=== PATIENT | female | born 1970 | race Caucasian/White ===

== ENCOUNTER 2019-10-05 08:31 | Day surgery (SDC) | payer OTHER ==
--- NOTE | 2019-10-04 09:27 | HP ---
HISTORY AND PHYSICAL CHIEF COMPLAINT: Left knee pain. HISTORY OF PRESENT ILLNESS: The patient is a 49-year-old female who presents with left knee pain for the past couple months. She tripped and fell on her left knee. She notes pain along with swelling and stiffness. She also notes giving way. PAST MEDICAL HISTORY: Otherwise negative. PAST SURGICAL HISTORY: Negative. CURRENT MEDICATIONS: None. ALLERGIES: She denies drug allergies. FAMILY HISTORY: Family history is noncontributory. SOCIAL HISTORY: Negative for current tobacco or alcohol use. REVIEW OF SYSTEMS: Sixteen point review of systems otherwise reviewed and is noncontributory. PHYSICAL EXAMINATION: On examination, the patient is approximately 5 foot 4, 147 pounds of mesomorphic habitus. HEENT: Exam is nonfocal. NECK: Supple. EXTREMITIES: She has painless passive motion of her left hip. Straight leg raise is negative. Active motion left knee -10 to 130 degrees of flexion. She is tender about the lateral greater than medial joint line. She has a mild effusion. Collaterals are stable. Karley's 1+. Kayleigh's elicits medial pain. Her distal neurovascular exam appears intact in the left lower extremity. X-RAY: X-rays of the left knee obtained in the office show mild medial compartment narrowing. MRI report left knee shows a posterior medial meniscal tear along with a chronic ACL tear. IMPRESSION: 1. Internal derangement left knee with symptomatic medial meniscal tear. 2. 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 RECOMMENDATIONS: I talked to the patient at length regarding her condition and treatment options. At this point, she is having significant pain and mechanical symptoms after this acute injury. After thorough discussion, she opts to proceed with surgery. We will plan to proceed with arthroscopic evaluation with probable partial medial meniscectomy. We will not plan on an anterior cruciate ligament reconstruction at this point. We will likely perform this as an outpatient procedure. MMODL / IJN: [id number] /
[2019-10-04 10:05] VITALS: BMI 25.2
[~2019-10-05 08:31] MED LIST: DEXAMETHASONE SOD PHOSPHATE 10 MG/ML 1 ML VIAL IV ONE; KETOROLAC 30 MG/ML 1 ML VIAL IVP SCH; LACTATED RINGERS 1,000 ML IV SCH; LIDOCAINE 1% (10MG/ML) FOR IV START INTRADERMA PRN; METOCLOPRAMIDE 5 MG/ML 2 ML VIAL IVP PRN; ONDANSETRON 4 MG/2 ML VIAL IVP ONE
[2019-10-05] MEDS ORDERED: ONDANSETRON 4 MG/2 ML VIAL ONE ×2 (09:14→12:22)
[2019-10-05 09:34] LABS: Basophils % (A) 1 %; Eosinophils # (A) 0.2 k/uL (0-0.7); Eosinophils % (A) 3 %; HCT 40.4 % (34.0-46.0); Lymphocytes # (A) 1.3 k/uL (1.0-4.8); Lymphocytes % (A) 24 %; MCH 27.9 pg (25.0-35.0); MCHC 32.1 g/dL (31.0-37.0); MCV 87.1 fL (80.0-100.0); Mean Platelet Volume 8.1; Monocytes # (A) 0.4 k/uL (0-1.0); Monocytes % (A) 7 %; Neutrophils # (A) 3.4 k/uL (1.3-7.7); Neutrophils % (A) 63 %; Platelet Count 198 k/uL (150-450); RBC 4.64 m/uL (3.80-5.40); RDW 13.3 % (11.5-15.5); WBC 5.3 k/uL (3.8-10.6)
[2019-10-05 09:44] LABS: African American GFR (CKD) >90 (>60 ml/min/1.73 sqM); Anion Gap 7 mmol/L; Blood Urea Nitrogen 18 mg/dL (7-17); Calcium 8.8 mg/dL (8.4-10.2); Carbon Dioxide 26 mmol/L (22-30); Chloride 106 mmol/L (98-107); Glucose 85 mg/dL (74-99); Non-African American GFR(CKD) >90 (>60 ml/min/1.73 sqM); Potassium 3.9 mmol/L (3.5-5.1); Sodium 139 mmol/L (137-145)
[2019-10-05] MEDS ORDERED: SUCCINYLCHOLINE CHLORIDE 100 MG/5 ML SYR IV ONE (09:53)
[2019-10-05] MEDS ORDERED: PROPOFOL 10 MG/ML 20 ML VIAL IV ONE (09:53)
[2019-10-05] MEDS ORDERED: fentaNYL (PF) 50 MCG/ML 2 ML AMP ONE (09:53)
[2019-10-05] MEDS ORDERED: MIDAZOLAM 2 MG/2 ML VIAL ONE (09:53)
[2019-10-05] MEDS ORDERED: LIDOCAINE 1% INJ 10MG/ML (20 ML MDV) ONE (09:53)
--- NOTE | 2019-10-05 11:11 | P.OP ---
Date of Procedure: 10/05/19 Preoperative Diagnosis: Left knee internal derangement Postoperative Diagnosis: Left knee posterior medial meniscal tear/chronic ACL rupture/grade 3 chondral injury posterior central medial femoral condyle Procedure(s) Performed: Left knee arthroscopic partial medial meniscectomy/ACL debridement/medial femoral chondrectomy/microfracture medial femoral condyle Anesthesia: RICO Surgeon: Balbir Turpin Estimated Blood Loss (ml): 10 Pathology: none sent Condition: stable Disposition: PACU Indications for Procedure: The patient's a 49-year-old female who presents with progressive left knee pain and mechanical symptoms after a recent injury. A discussion of the risks and benefits of operative intervention versus continued conservative measures was made with patient. She opted to proceed with surgery. Operative risks to include infection, neurovascular injury, development of blood clots, possible incomplete resolution of symptoms, possible worsening symptoms and need for subsequent procedures was discussed. Informed consent was obtained. Operative Findings: As below Description of Procedure: The patient was brought to the operating room, and after induction of general anesthesia examined the left knee. Collaterals were stable, Karley was 2+, and posterior drawer was negative. The left lower extremity was prepped and draped in a normal fashion. A superior lateral portal was made through a 3 mm skin i ncision superior and lateral to the patella. This was used for outflow. A lateral portal was made through a 5 mm vertical skin incision lateral to the patella tendon above the joint line. Diagnostic arthroscopy was performed. On inspection of the medial compartment, a complex tear involving the posterior horn of the medial meniscus was noted in the white-red junction. This was not amenable to repair. This was debrided back to stable base with straight baskets and a motorized shaver. A grade 3 chondral injury was noted involving the central posterior portion medial femoral condyle. There was a loose chondral fragment debrided back to stable base to motorized shaver. Microfracture is performed with a power pick preaching the subchondral surface down to the bone marrow elements. On inspection of the notch, the anterior cruciate ligament appeared to be chronically ruptured. 2 small bone fragments were removed. On inspection of the lateral compartment, no significant cartilage or meniscal pathology was noted. On inspection of the patellofemoral articulation, there was chondral fibrillation however no loose chondral fragments. The gutters were clear debris. The knee was then thoroughly irrigated. The portals were closed with Steri-Strips. A sterile dressing was applied in addition to a compression stocking. The patient was awoken from general anesthesia and tr ansferred to recovery room in good condition. Blood loss was estimated at 10 mL. No complications were incurred.
[2019-10-05 11:19] VITALS: TEMP 97.1
[2019-10-05] MEDS: HYDROmorphone 0.5 MG/0.5 ML SYRINGE IVP PRN ×3 (11:21→11:34)
[2019-10-05] MEDS ORDERED: HYDROcodone/APAP 5-325MG 1 EACH TAB PO ONE (11:58)
[2019-10-05] MEDS ORDERED: HYDROcodone/APAP 5-325MG 1 EACH TAB ONE ×2 (12:18→13:23)
[2019-10-05] MEDS ORDERED: ONDANSETRON 4 MG/2 ML VIAL IVP ONE (12:23)
[2019-10-05 12:29] VITALS: RESP 18
[2019-10-05] MEDS ORDERED: SCOPOLAMINE 1.5MG/72HR PATCH TRANSDERM ONE (13:59)
[2019-10-05] MEDS ORDERED: METOCLOPRAMIDE 5 MG/ML 2 ML VIAL ONE (14:21)
[2019-10-05] MEDS ORDERED: METOCLOPRAMIDE 5 MG/ML 2 ML VIAL IVP ONE (14:24)
[2019-10-05 15:03] VITALS: BP 111/73; PULSE 71
== END 2019-10-05 16:22 | disposition home or self-care (01) ==
LOC: OR 08:31
PROVIDERS: ATTEND Orthopaedic Surgery
DX: S83.242A Other tear of medial meniscus, current injury, left knee, initial encounter (principal); S83.512A Sprain of anterior cruciate ligament of left knee, initial encounter; S83.32XA Tear of articular cartilage of left knee, current, initial encounter; W01.0XXA Fall on same level from slipping, tripping and stumbling without subsequent striking against object, initial encounter; M23.42 Loose body in knee, left knee; F41.9 Anxiety disorder, unspecified; K21.9 Gastro-esophageal reflux disease without esophagitis; Z79.899 Other long term (current) drug therapy
CPT/HCPCS: 29881; 29888; 29879; 81025; 80048; 85025; J2250; J1100; J2765; J0690; J2405; J2001; J3010; J1885; J0330; J2704; J1170; 93005

== ENCOUNTER 2019-11-20 23:02 | Emergency (ER) | payer OTHER ==
[2019-11-20] MEDS ORDERED: LIDOCAINE 1% INJ 10MG/ML (20 ML MDV) SQ ONE (23:27)
[2019-11-20] MEDS ORDERED: CEPHALEXIN 500MG STARTER PACK 4 CAP BTL PO STA (23:27)
[2019-11-20] MEDS ORDERED: SULFAMETH-TMP DS STARTER PACK 2 TAB BTL PO STA (23:27)
--- NOTE | 2019-11-20 23:30 | ED ---
General Adult HPI - General Chief complaint: Skin/Abscess/Foreign Body Stated complaint: Leg Abscess Time Seen by Provider: 11/20/19 23:10 Source: patient, RN notes reviewed Mode of arrival: ambulatory Limitations: no limitations - History of Present Illness Initial comments: 49-year-old female presents to the emergency room for a chief complaint of red ness to the right thigh. Patient states she has had a patch of redness to the right thigh for the past 2 days. States it started as a small bump that progressively got the urine and began to spread redness. Patient states she did poke the area with a needle and got some pus out earlier. She did squeeze the area as well. Patient reports it is not getting better so wanted to be evaluated. Denies fevers.Patient has no other complaints at this time including shortness of breath, chest pain, abdominal pain, nausea or vomiting, headache, or visual changes. - Related Data Home Medications Medication Instructions Recorded Confirmed Multivitamins, Thera [Multivitamin 1 tab PO DAILY 10/04/19 10/05/19 (formulary)] Naproxen [Naprosyn] 500 mg PO Q12HR 10/04/19 10/04/19 Previous Rx's Medication Instructions Recorded Hydrocodone/Acetaminophen [[place] 1 each PO Q6HR PRN #21 tab 10/05/19 5-325] Cephalexin [Keflex] 500 mg PO Q6HR 10 Days #40 cap 11/21/19 Sulfamethox-Tmp 800-160Mg [Bactrim 1 tab PO Q12HR #20 tab 11/21/19 DS 800-160 mg] Allergies Allergy/AdvReac Type Severity Reaction Status Date / Time No Known Allergies Allergy Verified 11/20/19 23:06 Review of Systems ROS Statement: Those systems with pertinent positive or pertinent negative responses have been documented in the HPI. ROS Other: All systems not noted in ROS Statement are negative. Past Medical History Past Medical History: Musculoskeletal Disorder History of Any Multi-Drug Resistant Organisms: None Reported Past Surgical History: Section Past Anesthesia/Blood Transfusion Reactions: No Reported Reaction Past Psychological History: Anxiety Smoking Status: Former smoker General Exam Limitations: no limitations General appearance: alert, in no apparent distress Head exam: Present: atraumatic, normocephalic, normal inspection Eye exam: Present: normal appearance, PERRL, EOMI. Absent: scleral icterus, conjunctival injection, periorbital swelling ENT exam: Present: normal exam, mucous membranes moist Neck exam: Present: normal inspection, full ROM. Absent: tenderness, meningismus, lymphadenopathy Respiratory exam: Present: normal lung sounds bilaterally. Absent: respiratory distress, wheezes, rales, rhonchi, stridor Cardiovascular Exam: Present: regular rate, normal rhythm, normal heart sounds. Absent: systolic murmur, diastolic murmur, rubs, gallop, clicks GI/Abdominal exam: Present: soft, normal bowel sounds. Absent: distended, tenderness, guarding, rebound, rigid Extremities exam: Present: other (patient has a 10 cm x 10 cm of erythemaconsistent with cellulitis noted on the anterior right thigh. There is no streaking redness associated with this. There is a small area of induration in the center of the erythema presumed to be abscess.) Course Vital Signs 11/20/19 23:02 Temperature 98.1 F Pulse Rate 95 Respiratory 20 Rate Blood Pressure 118/75 O2 Sat by Pulse 98 Oximetry Procedures - Incision & Drainage Consent Obtained: verbal consent Indication: abscess Site: lower extremity Size (cm): 2 Anesthetic Used: lidocaine 1% Amount (mLs): 2 I&D Cleaning Method: Chloroprep Sterile Field Used?: Yes Scalpel Used: #11 I&D Drainage Obtained: Blood Patient Tolerated Procedure: well, no complications Medical Decision Making - Medical Decision Making patient is about 10 cm of erythema consistent with cellulitis. In the center of this there is a 1 cm x 1 cm indurated area consistent with abscess. However I did incise and drain this and there is no purulent material expelled. Patient will be started on Keflex and Bactrim. Redness was lined with a marker and she will return if it spreads passes after 24 hours. She will return if she has any other worsening symptoms or fevers. Otherwise she will follow-up with her doct or at her appointment in 3 days. Disposition Clinical Impression: Cellulitis Disposition: HOME SELF-CARE Condition: Good Instructions (If sedation given, give patient instructions): Abscess (ED), Cellulitis (ED) Additional Instructions: please take antibiotics as directed. If redness spreads past the line after 24 hours return to the emergency room. If you have any worsening symptoms or fevers return to the emergency room. Otherwise follow-up with your doctor at your appointment on Tuesday. Prescriptions: Sulfamethox-Tmp 800-160Mg [Bactrim DS 800-160 mg] 1 tab PO Q12HR #20 tab Cephalexin [Keflex] 500 mg PO Q6HR 10 Days #40 cap Is patient prescribed a controlled substance at d/c from ED?: No Referrals: Jigna Mejia MD [Primary Care Provider] - 1-2 days Time of Disposition: 00:29
[2019-11-21 01:03] VITALS: BP 131/63; PULSE 72; RESP 16; TEMP 98.3
== END 2019-11-21 01:00 | disposition home or self-care (01) ==
LOC: EC 23:02
DX: L02.415 Cutaneous abscess of right lower limb (principal); Z87.891 Personal history of nicotine dependence
CPT/HCPCS: 99283; 10060; J2001

== ENCOUNTER 2020-01-06 21:03 | Emergency (ER) | payer OTHER ==
[2020-01-06 21:09] VITALS: BP 117/79; PULSE 83; RESP 20; TEMP 98.9
[2020-01-06] MEDS ORDERED: CEPHALEXIN 500 MG CAP PO STA (22:21)
[2020-01-06] MEDS ORDERED: SULFAMETHOX-TMP 800-160MG 1 EACH TAB PO STA (22:21)
--- NOTE | 2020-01-06 22:26 | ED ---
Skin/Abscess/FB HPI - General Source: patient Mode of arrival: ambulatory Limitations: no limitations <Fern Allison - Last Filed: 01/07/20 02:15> <Felisa Crook - Last Filed: 01/08/20 13:18> - General Chief complaint: Skin/Abscess/Foreign Body Stated complaint: Poss bite on L Leg Time Seen by Provider: 01/06/20 21:32 - History of Present Illness Initial comments: Patient is a 49-year-old female presenting to the emergency Department with complaints of a possible abscess on her left lower leg. Patient states she noticed what looked like a mosquito bite on her left lower leg about 3 or 4 days ago but then yesterday she noticed it was beginning to be more red than usual and increase in size. She states it has been draining clear to yellow fluid over the past 2 days. She denies any fever, chills, nausea or vomiting. She states she had a similar thing on her right upper leg a few months ago and she had to have antibiotics. She states that cleared up just fine. She has been keeping the area clean and applying Benadryl cream for the itchiness. She has no further complaints at this time. Upon arrival to the ER, her vital signs are stable. (Fern Allison) - Related Data Home Medications Medication Instructions Recorded Confirmed Multivitamins, Thera [Multivitamin 1 tab PO DAILY 10/04/19 10/05/19 (formulary)] Naproxen [Naprosyn] 500 mg PO Q12HR 10/04/19 10/04/19 Previous Rx's Medication Instructions Recorded Hydrocodone/Acetaminophen [[place] 1 each PO Q6HR PRN #21 tab 10/05/19 5-325] Cephalexin [Keflex] 500 mg PO Q6HR 10 Days #40 cap 11/21/19 Sulfamethox-Tmp 800-160Mg [Bactrim 1 tab PO Q12HR #20 tab 11/21/19 DS 800-160 mg] Cephalexin [Keflex] 500 mg PO Q6HR 10 Days #40 cap 01/06/20 Sulfamethox-Tmp 800-160Mg [Bactrim 1 each PO Q12HR 10 Days #20 tab 01/06/20 Ds] Allergies Allergy/AdvReac Type Severity Reaction Status Date / Time No Known Allergies Allergy Verified 01/06/20 21:09 Review of Systems ROS Other: All systems not noted in ROS Statement are negative. <Fern Allison - Last Filed: 01/07/20 02:15> ROS Other: All systems not noted in ROS Statement are negative. <Felisa Crook - Last Filed: 01/08/20 13:18> ROS Statement: Those systems with pertinent positive or pertinent negative responses have been documented in the HPI. Past Medical History Past Medical History: Musculoskeletal Disorder History of Any Multi-Drug Resistant Organisms: None Reported Past Surgical History: Section Past Anesthesia/Blood Transfusion Reactions: No Reported Reaction Past Psychological History: Anxiety Smoking Status: Former smoker Past Alcohol Use History: None Reported Past Drug Use History: None Reported <Fern Allison - Last Filed: 01/07/20 02:15> General Exam Limitations: no limitations <Fern Allison - Last Filed: 01/07/20 02:15> - General Exam Comments Initial Comments: GENERAL: Patient is well-developed and well-nourished. Patient is nontoxic and in no acute distress. HEAD: Atraumatic, normocephalic. EYES: Pupils equal round and reactive to light, extraocular movements intact, sclera anicteric, conjunctiva are normal. Eyelids were unremarkable. ENT: TMs normal, nares patent, oropharynx clear without exudates. Moist mucous membranes. NECK: Normal range of motion, supple without lymphadenopathy or JVD. LUNGS: Unlabored respirations. Breath sounds clear to auscultation bilaterally and equal. No wheezes rales or rhonchi. HEART: Regular rate and rhythm without murmurs, rubs or gallops. ABDOMEN: Soft, nontender, normoactive bowel sounds. No guarding, no rebound. No masses appreciated. : Deferred MUSCULOSKELETAL: Normal extremities with adequate strength and normal range of motion, no pitting or edema. No clubbing or cyanosis. NEUROLOGICAL: Patient is alert and oriented x 3. Motor and sensory are also intact. Symmetrical smile. Normal speech, normal gait. PSYCH: Normal mood, normal affect. SKIN: Warm, Dry, normal turgor. Patient has a very small 0.5 cm sore to her left lower leg anterior aspect that has some surrounding erythema, consistent with cellulitis. This area is draining a clear to yellowish fluid. There is no induration or fluctuance to it. (Fern Allison) Course Vital Signs 01/06/20 21:06 Temperature 98.9 F Pulse Rate 83 Respiratory 20 Rate Blood Pressure 117/79 O2 Sat by Pulse 100 Oximetry Medical Decision Making <Fern Allison - Last Filed: 01/07/20 02:15> <Felisa Crook - Last Filed: 01/08/20 13:18> - Medical Decision Making Patient is a 49-year-old female here for cellulitis of the left lower leg that began 2-3 days ago. Her vital signs are stable she is afebrile. I will start patient on Bactrim and Keflex for cellulitis, first dose given in the ER. I will send the rest her pharmacy. She is stable for discharge. Strict return parameters were discussed with the patient she verbalized understanding. Case discussed with Dr. Crook. (Fern Allison) I was available for consultation in the emergency department. The history and physical exam were done by the midlevel provider. I was consulted for this patients care. I reviewed the case with the midlevel provider and based on their presentation of the patient, I agree with the assessment, medical decision making and plan of care as documented. Chart was dictated using [employer] dictation software. Attempts were made to correct any dictation errors however some typographical errors may persist. Patient was seen during a national state of emergency due to the Covid-19 pandemic. (Felisa Crook) Disposition Is patient prescribed a controlled substance at d/c from ED?: No <Fern Allison - Last Filed: 01/07/20 02:15> <Felisa Crook - Last Filed: 01/08/20 13:18> Clinical Impression: Cellulitis of left lower leg Disposition: HOME SELF-CARE Condition: Stable Instructions (If sedation given, give patient instructions): Cellulitis (ED) Additional Instructions: Please return to the Emergency Department if symptoms worsen or any other concerns. Take both antibiotics as prescribed, finish entire course. Apply warm compresses to the area to continue with drainage. Follow up with PCP. Prescriptions: Sulfamethox-Tmp 800-160Mg [Bactrim Ds] 1 each PO Q12HR 10 Days #20 tab Cephalexin [Keflex] 500 mg PO Q6HR 10 Days #40 cap Referrals: Jigna Mejia MD [Primary Care Provider] - 1-2 days
== END 2020-01-06 22:35 | disposition home or self-care (01) ==
LOC: EC 21:03
DX: L03.116 Cellulitis of left lower limb (principal); Z79.1 Long term (current) use of non-steroidal anti-inflammatories (NSAID); Z87.891 Personal history of nicotine dependence
CPT/HCPCS: 99283

== ENCOUNTER 2020-01-10 16:55 | Inpatient (IN) | payer OTHER ==
[2020-01-10] MEDS ORDERED: VANCOMYCIN IV PER PHARMACY 1 EACH MISC MISCELLANE PRN (17:16)
[2020-01-10] MEDS ORDERED: PIPERACILLIN-TAZOBACTAM 3.375 GM in SODIUM CHLORIDE 0.9% 100 ML IVPB STA (17:16)
[2020-01-10] MEDS ORDERED: SODIUM CHLORIDE 0.9% 500 ML 500 ML IV ONE (17:17)
[2020-01-10] MEDS ORDERED: VANCOMYCIN 1,500 MG in SODIUM CHLORIDE 0.9% 250 ML IVPB ONE (18:00)
--- NOTE | 2020-01-10 18:03 | ED ---
Skin/Abscess/FB HPI - General Source: patient Mode of arrival: ambulatory Limitations: no limitations <Asuncion Bahena - Last Filed: 01/10/20 20:30> <Felisa Crook - Last Filed: 01/16/20 00:36> - General Chief complaint: Skin/Abscess/Foreign Body Stated complaint: Spider bite, Swollen foot Time Seen by Provider: 01/10/20 17:03 - History of Present Illness Initial comments: 49-year-old female presented for worsening infection of the left lower leg. Patient states approximately one week ago she was bit by something when she was in her yard. Patient states it first that the mosquito bite she states has been worsening in redness/swelling. She states the area has been draining. Patient states that on 01.05 she was placed on keflex and bactrim and has been taking them as directed. Patient denies fevers, chills. Admits to increased pain, swelling of the foot. Patient concerned the infection worsening and presented to the ER. Upon arrival patient appears well nontoxic in no acute distress. Afebrile. No known vascular disease, MRSA hx or DM. (Asuncion Bahena) - Related Data Home Medications Medication Instructions Recorded Confirmed Multivitamins, Thera [Multivitamin 1 tab PO DAILY 10/04/19 01/10/20 (formulary)] Previous Rx's Medication Instructions Recorded HYDROcodone/APAP 5-325MG [[place] 1 each PO Q12HR PRN 2 Days #4 tab 01/15/20 5-325] Sulfamethox-Tmp 800-160Mg [Bactrim 1 tab PO Q12HR 7 Days #14 tab 01/15/20 DS 800-160 mg] Allergies Allergy/AdvReac Type Severity Reaction Status Date / Time No Known Allergies Allergy Verified 01/10/20 18:32 Review of Systems ROS Other: All systems not noted in ROS Statement are negative. <Asuncion Bahena - Last Filed: 01/10/20 20:30> ROS Other: All systems not noted in ROS Statement are negative. <Felisa Crook - Last Filed: 01/16/20 00:36> ROS Statement: Those systems with pertinent positive or pertinent negative responses have been documented in the HPI. Past Medical History Past Medical History: Musculoskeletal Disorder History of Any Multi-Drug Resistant Organisms: None Reported Past Surgical History: Section Past Anesthesia/Blood Transfusion Reactions: No Reported Reaction Past Psychological History: Anxiety Smoking Status: Former smoker Past Alcohol Use History: None Reported Past Drug Use History: None Reported <Asuncion Bahena - Last Filed: 01/10/20 20:30> General Exam Limitations: no limitations <Asuncion Bahena - Last Filed: 01/10/20 20:30> - General Exam Comments Initial Comments: General: The patient is awake and alert, in no distress Eye: Pupils are equal, round and reactive to light, extra-ocular movements are intact. No nystagmus. There is normal conjunctiva bilaterally. No signs of icterus. D. Cardiovascular: There is a regular rate and rhythm. No murmur, rub or gallop is appreciated. Respiratory: Lungs are clear to auscultation, respirations are non-labored, breath sounds are equal. No wheezes, stridor, rales, or rhonchi. Musculoskeletal: Normal ROM, no tenderness. Strength 5/5. Sensation intact. Pulses equal bilaterally 2+. Neurological: A&O x 3. CN II-XII intact grossly, There are no obvious motor or sensory deficits. Coordination appears grossly intact. Speech is normal. Skin: Skin is warm and dry and no rashes. well demarcated red area of the left lower leg, extending distall toward inward aspect of left foot arm, there is a center area lower anterior left leg that has area of spontaneous drainage, eschar present. warm ti tiycg Psychiatric: Cooperative, appropriate mood & affect, normal judgment. (Asuncion Bahena) Course Vital Signs 01/10/20 01/10/20 01/10/20 16:57 18:40 20:57 Temperature 98.2 F 98.0 F Pulse Rate 86 87 84 Respiratory 18 18 18 Rate Blood Pressure 136/83 113/76 115/76 O2 Sat by Pulse 98 98 99 Oximetry Medical Decision Making - Lab Data Result diagrams: 01/10/20 17:50 01/10/20 17:50 <Asuncion Bahena - Last Filed: 01/10/20 20:30> - Lab Data Result diagrams: 01/14/20 11:26 01/15/20 06:33 <Felisa Crook - Last Filed: 01/16/20 00:36> - Medical Decision Making Labs stable. on outpatinet abx x 4 days, worsening symptoms. Patient appears nontoxic but failed outpatient treatment with significant disease clincally on physical exam. patient will be admitted for IV abx and monitoring. I&D performed bedside, time out performed, skin marked, verbal and written consent obtained prior to procedure. Dr Crook is agreeable to admission and personally evaluated patient. I&D time out at 8;26 (Asuncion Bahena) I was available for consultation in the emergency department. The history and physical exam were done by the midlevel provider. I was consulted for this patients care. I reviewed the case with the midlevel provider and based on their presentation of the patient, I agree with the assessment, medical decision making and plan of care as documented. Patient evaluated by myself. Agreed to hospital admission with worsening wound on antibiotics. Chart was dictated using [employer] dictation software. Attempts were made to correct any dictation errors however some typographical errors may persist. Patient was seen during a national state of emergency due to the Covid-19 pandemic. (Felisa Crook) - Lab Data Lab Results 01/10/20 01/10/20 01/10/20 Range/Units 17:50 17:50 17:50 WBC 6.9 (3.8-10.6) k/uL RBC 4.22 (3.80-5.40) m/uL Hgb 12.5 (11.4-16.0) gm/dL Hct 37.9 (34.0-46.0) % MCV 89.7 (80.0-100.0) fL MCH 29.7 (25.0-35.0) pg MCHC 33.1 (31.0-37.0) g/dL RDW 12.6 (11.5-15.5) % Plt Count 243 (150-450) k/uL Neutrophils % 64 % Lymphocytes % 25 % Monocytes % 7 % Eosinophils % 2 % Basophils % 1 % Neutrophils # 4.4 (1.3-7.7) k/uL Lymphocytes # 1.7 (1.0-4.8) k/uL Monocytes # 0.5 (0-1.0) k/uL Eosinophils # 0.1 (0-0.7) k/uL Basophils # 0.1 (0-0.2) k/uL Sodium 137 (137-145) mmol/L Potassium 3.8 (3.5-5.1) mmol/L Chloride 102 (98-107) mmol/L Carbon Dioxide 28 (22-30) mmol/L Anion Gap 7 mmol/L BUN 21 H (7-17) mg/dL Creatinine 0.62 (0.52-1.04) mg/dL Est GFR (CKD-EPI)AfAm >90 (>60 ml/min/1.73 sqM) Est GFR (CKD-EPI)NonAf >90 (>60 ml/min/1.73 sqM) Glucose 86 (74-99) mg/dL Plasma Lactic Acid Jeffrey 0.9 (0.7-2.0) mmol/L Calcium 9.1 (8.4-10.2) mg/dL Total Bilirubin 0.3 (0.2-1.3) mg/dL AST 50 H (14-36) U/L ALT 59 H (4-34) U/L Alkaline Phosphatase 126 (38-126) U/L Total Protein 6.8 (6.3-8.2) g/dL Albumin 3.8 (3.5-5.0) g/dL Disposition Is patient prescribed a controlled substance at d/c from ED?: No Time of Disposition: 19:02 Decision to Admit Reason: Admit from EC Decision Date: 01/10/20 Decision Time: 19:02 <Asuncion Bahena - Last Filed: 01/10/20 20:30> <Felisa Crook - Last Filed: 01/16/20 00:36> Clinical Impression: Left leg cellulitis, Leg abscess, Failure of outpatient treatment Disposition: ADMITTED IP TO THIS HOSP Condition: Stable
--- NOTE | 2020-01-10 18:08 | XR ---
PROCEDURE: XR tibia fibula LT - 2V DATE AND TIME: 01/10/2020 5:44 PM CLINICAL INDICATION: PHH; r/o gas TECHNIQUE: AP and lateral views COMPARISON: None FINDINGS: There is no fracture or malalignment. Evaluation of the soft tissues shows a 2 cm zone of nonspecific soft tissue swelling located anterior ly over the tibia approximately 7.5 cm cephalad to the tibiotalar articulation. There is no soft tiss ue emphysema. No radiopaque foreign body. Remainder of the soft tissues are unremarkable. IMPRESSION: Nonspecific 2 cm zone of soft tissue swelling.
[2020-01-10 18:35] LABS: Basophils # (A) 0.1 k/uL (0-0.2); Basophils % (A) 1 %; Eosinophils # (A) 0.1 k/uL (0-0.7); Eosinophils % (A) 2 %; HCT 37.9 % (34.0-46.0); HGB 12.5 gm/dL (11.4-16.0); Lymphocytes # (A) 1.7 k/uL (1.0-4.8); Lymphocytes % (A) 25 %; MCH 29.7 pg (25.0-35.0); MCHC 33.1 g/dL (31.0-37.0); MCV 89.7 fL (80.0-100.0); Mean Platelet Volume 8.4; Monocytes # (A) 0.5 k/uL (0-1.0); Monocytes % (A) 7 %; Neutrophils # (A) 4.4 k/uL (1.3-7.7); Neutrophils % (A) 64 %; Platelet Count 243 k/uL (150-450); RBC 4.22 m/uL (3.80-5.40); RDW 12.6 % (11.5-15.5); WBC 6.9 k/uL (3.8-10.6)
[2020-01-10] MEDS: SODIUM CHLORIDE 0.9% 1,000 ML IV SCH (18:40)
[2020-01-10 18:48] LABS: ALT 59 U/L (4-34); AST 50 U/L (14-36); African American GFR (CKD) >90 (>60 ml/min/1.73 sqM); Albumin 3.8 g/dL (3.5-5.0); Alkaline Phosphatase 126 U/L (38-126); Anion Gap 7 mmol/L; Blood Urea Nitrogen 21 mg/dL (7-17); Calcium 9.1 mg/dL (8.4-10.2); Carbon Dioxide 28 mmol/L (22-30); Chloride 102 mmol/L (98-107); Glucose 86 mg/dL (74-99); Non-African American GFR(CKD) >90 (>60 ml/min/1.73 sqM); Potassium 3.8 mmol/L (3.5-5.1); Sodium 137 mmol/L (137-145); Total Bilirubin 0.3 mg/dL (0.2-1.3); Total Protein 6.8 g/dL (6.3-8.2)
[2020-01-10] MEDS ORDERED: NALOXONE 0.4 MG/ML 1 ML VIAL IV PRN (19:01)
[2020-01-10] MEDS ORDERED: LIDOCAINE 1% INJ 10MG/ML (20 ML MDV) SQ ONE (19:26)
[2020-01-10] MEDS: MORPHINE SULFATE 4 MG/ML SYRINGE IVP SCH (22:16)
[2020-01-10] MEDS ORDERED: traMADol 50 MG TAB PO PRN (23:13)
[2020-01-10] MEDS: KETOROLAC 15 MG/ML 1 ML VIAL IVP PRN (23:36)
[2020-01-10] MEDS: PANTOPRAZOLE 40 MG TABLET PO SCH (23:37)
[2020-01-11] MEDS: MORPHINE SULFATE 4 MG/ML SYRINGE IVP SCH ×2 (02:45→05:48)
[2020-01-11] MEDS ORDERED: VANCOMYCIN 1,250 MG in SODIUM CHLORIDE 0.9% 250 ML IVPB SCH (05:00)
[2020-01-11] MEDS: SODIUM CHLORIDE 0.9% 1,000 ML IV SCH ×4 (05:26→18:05)
[2020-01-11] MEDS: VANCOMYCIN 1,250 MG in SODIUM CHLORIDE 0.9% 250 ML IVPB SCH ×3 (05:26→20:16)
[2020-01-11] MEDS ORDERED: MORPHINE SULFATE 4 MG/ML SYRINGE IVP PRN (05:49)
[2020-01-11] MEDS: MULTIVITAMINS, THERA 1 EACH TAB PO SCH (08:18)
[2020-01-11] MEDS: KETOROLAC 15 MG/ML 1 ML VIAL IVP PRN (08:18)
[2020-01-11] MEDS: PANTOPRAZOLE 40 MG TABLET PO SCH (09:45)
--- NOTE | 2020-01-11 12:12 | XR ---
EXAMINATION TYPE: XR tibia fibula LT, 2 views DATE OF EXAM: 01/11/2020 Comparison: 01/10/2020 Clinical History: 49-year-old female nonhealing wound lower left leg Findings: There is some improvement in focal anterior soft tissue swelling along the lower leg. No periostitis or osteolysis. No retained radiopaque foreign body identified. No acute fracture. Impression: Some improvement in the focal soft tissue swelling along the anterior aspect of the distal leg. No ac [place] osseous abnormality seen.
[2020-01-11] MEDS ORDERED: NAPROXEN 250 MG TAB PO PRN (14:33)
[2020-01-11] MEDS ORDERED: ALPRAZolam 0.25 MG TAB PO PRN (14:34)
[2020-01-11] MEDS ORDERED: TEMAZEPAM 15 MG CAP PO PRN (14:34)
--- NOTE | 2020-01-11 15:27 | HP ---
HISTORY AND PHYSICAL DATE OF SERVICE: 01/11/2020 CHIEF COMPLAINT: Leg swelling and infection with failure of outpatient treatment. HISTORY OF PRESENT ILLNESS: This 49-year-old woman with a past medical history of multiple medical issues with history of DJD, history of anxiety, history of nicotine dependence, being followed by Dr. Jocelyne Mejia in the outpatient setting, was noted to have pain and swelling of the left leg after working in the yard about a week ago. The patient has taken some antibiotics Keflex and Bactrim in the outpatient. Because of lack of improvement, patient came to [facility] and was admitted for further evaluation and treatment. There is significant swelling in the foot and white count is normal. There is no history of fever, rigors. No history of headache, loss of consciousness, seizures. PAST MEDICAL HISTORY: History of DJD, history of anxiety. MEDICATIONS ARE: Bactrim, Naprosyn, multivitamins, and Keflex. ALLERGIES: None. FAMILY HISTORY: History of brain aneurysm in the family. SOCIAL HISTORY: No history of smoking. No history of alcohol. REVIEW OF SYSTEMS: ENT: No diminished vision. Diminished hearing. CARDIOVASCULAR: No angina. RESPIRATION: No cough, hemoptysis. GI: No nausea. : No edema. NERVOUS SYSTEM: No numbness or weakness. ALLERGY/IMMUNOLOGY: No asthma or hayfever. MUSCULOSKELETAL: As mentioned earlier. HEMATOLOGY: No history of anemia. ENDOCRINE: No history of diabetes or hypothyroidism. CONSTITUTIONAL: As mentioned earlier. DERMATOLOGY: Negative. RHEUMATOLOGY: Negative. PSYCHIATRY: As mentioned earlier. PHYSICAL EXAM: Patient is alert and oriented x3. Pulse 76, blood pressure 105/60, respirations 16, temperature 98 degrees, pulse ox 98% on room air. HEENT: Conjunctivae normal. NECK: No jugular venous distension. CARDIOVASCULAR SYSTEM: S1, S2, muffled. RESPIRATION: Breath sounds diminished at the bases, no rhonchi, no crackles. ABDOMEN: Soft, nontender. LEGS: Significant pain, swelling and erythema and some discharge on the left mentioned area present. NERVOUS SYSTEM: Higher functions as mentioned. Moves all 4 limbs. No focal motor deficit. LYMPHATICS: No lymph node enlargement. SKIN: As mentioned earlier. JOINTS: No active deforming arthropathy. LABS: CBC within normal. Sodium 137, potassium 3.8. AST is 50, ALT is 59. ASSESSMENT: 1. Acute left gomes ulcer with surrounding cellulitis with failure of outpatient treatment, severe. 2. Increased AST, ALT of undetermined etiology. 3. History of DJD. 4. history of anxiety. 5. History of nicotine dependence. 6. FULL CODE. RECOMMENDATION: In this 49-year-old woman who presented with multiple complex medical issues, will monitor the patient closely. Continue with the current management and symptomatic treatment. Patient is on broad-spectrum IV antibiotic. Recommend Vascular Surgery consultation. Guarded prognosis. Will initiate Kefzol and the patient is started on vancomycin. Infectious Disease consultation has been sought. Prognosis guarded. Further recommendations to follow. A copy of this forwarded to Dr. Jocelyne Mejia who is the primary physician. MMODL / IJN: [id number] /
[2020-01-11] MEDS: HEPARIN SODIUM,PORCINE 5,000 UNIT/ML 1 ML VIAL SQ SCH ×2 (15:34→20:17)
[2020-01-11] MEDS: HYDROcodone/APAP 5-325MG 1 EACH TAB PO PRN ×2 (15:35→20:35)
[2020-01-12] MEDS: HYDROcodone/APAP 5-325MG 1 EACH TAB PO PRN ×3 (02:21→20:37)
[2020-01-12] MEDS ORDERED: VANCOMYCIN TROUGH DUE 1 EACH MISC MISCELLANE ONE (03:00)
[2020-01-12 03:34] LABS: Basophils # (A) 0.1 k/uL (0-0.2); Basophils % (A) 1 %; Eosinophils # (A) 0.2 k/uL (0-0.7); Eosinophils % (A) 4 %; HCT 34.6 % (34.0-46.0); HGB 11.1 gm/dL (11.4-16.0); Lymphocytes # (A) 2.1 k/uL (1.0-4.8); Lymphocytes % (A) 44 %; MCH 29.4 pg (25.0-35.0); MCV 91.6 fL (80.0-100.0); Mean Platelet Volume 8.1; Monocytes # (A) 0.3 k/uL (0-1.0); Monocytes % (A) 7 %; Neutrophils % (A) 43 %; Platelet Count 226 k/uL (150-450); RBC 3.78 m/uL (3.80-5.40); RDW 12.8 % (11.5-15.5); WBC 4.7 k/uL (3.8-10.6)
[2020-01-12 03:45] LABS: African American GFR (CKD) >90 (>60 ml/min/1.73 sqM); Anion Gap 5 mmol/L; Blood Urea Nitrogen 14 mg/dL (7-17); Calcium 8.4 mg/dL (8.4-10.2); Carbon Dioxide 28 mmol/L (22-30); Chloride 104 mmol/L (98-107); Glucose 82 mg/dL (74-99); Non-African American GFR(CKD) >90 (>60 ml/min/1.73 sqM); Potassium 4.2 mmol/L (3.5-5.1); Sodium 137 mmol/L (137-145)
[2020-01-12] MEDS: VANCOMYCIN 1,250 MG in SODIUM CHLORIDE 0.9% 250 ML IVPB SCH (04:52)
[2020-01-12] MEDS: HEPARIN SODIUM,PORCINE 5,000 UNIT/ML 1 ML VIAL SQ SCH ×2 (07:49→20:37)
[2020-01-12] MEDS: KETOROLAC 15 MG/ML 1 ML VIAL IVP PRN (07:49)
[2020-01-12] MEDS: PANTOPRAZOLE 40 MG TABLET PO SCH ×2 (07:50→20:36)
[2020-01-12] MEDS: MULTIVITAMINS, THERA 1 EACH TAB PO SCH (07:50)
[2020-01-12] MEDS: SODIUM CHLORIDE 0.9% 1,000 ML IV SCH ×2 (07:51→14:49)
[2020-01-12] MEDS ORDERED: bisacodyL 5 MG TABLET.DR PO PRN (11:49)
[2020-01-12] MEDS ORDERED: LIDOCAINE 1% INJ 10MG/ML (20 ML MDV) SQ ONE (11:58)
[2020-01-12] MEDS: VANCOMYCIN 1,500 MG in SODIUM CHLORIDE 0.9% 250 ML IVPB SCH ×2 (12:03→20:37)
[2020-01-12] MEDS: COLLAGENASE 250 UNIT/GM OINTMENT 30 GM TUBE TOPICAL SCH (13:21)
--- NOTE | 2020-01-12 13:45 | CONS ---
CONSULTATION This is a 49-year-old female. She has been admitted with infected wound left lower extremity anterior aspect of the gomes. According to the patient last week she was working in the garden. According to her, she had some insect bite and she came to the emergency room. At that time, there was some redness and swelling. Patient was put on Keflex and patient came home. She has been readmitted with open chronic wound with draining pus from the anterior aspect of the wound. Wound measurement is 2 x 1 cm with some devitalized tissue and some drainage. There is also swelling of the foot. No history of trauma. PAST MEDICAL HISTORY: Patient had history of anxiety. No history of diabetes, hypertension or coronary artery disease. ALLERGIES: No known allergies. Her white cell count is 6.9. X-ray of the extremity shows no evidence of osteomyelitis. PHYSICAL EXAMINATION: NECK: Supple. Trachea central. CHEST: Clear to auscultation. ABDOMEN: Soft. Femorals are palpable. The patient has a wound on the anterior aspect of the lower leg with infected area with drainage of pus and some devitalized tissue. The patient is admitted to the hospital. PLAN: Debridement of the wound and deep culture. MMODL / IJN: [id number] /
--- NOTE | 2020-01-12 13:45 | PCN ---
PROCEDURE NOTE PREOPERATIVE DIAGNOSIS: Infected wound, left foot, anterior aspect of the gomes measurement is 2 x 1 cm. POSTOPERATIVE DIAGNOSIS: Infected wound, left foot, anterior aspect of the gomes measurement is 2 x 2 x 1 cm. PROCEDURE PERFORMED: Debridement of the wound down to subcutaneous tissue and excision of the devitalized tissue and deep culture. PROCEDURE DETAILS: This patient had history of swelling and wound for the past 1 week. Patient came with marked swelling, redness and drainage of the wound. The left lower leg was prepped and drapes applied in a sterile manner. 1% lidocaine was infiltrated. Then using patient knife, we did the elliptical incision. All the devitalized tissue was excised down to subcutaneous tissue and fat. Deep culture was taken which was sent for culture and sensitivity. No active bleeding was noted. Wound was irrigated with saline. PLAN: We will use Santyl cream for the wound. We will change the dressing daily with Santyl cream and follow with you. MMLANDYL / ZABRINAN: [id number] /
--- NOTE | 2020-01-12 16:15 | PN ---
PROGRESS NOTE DATE OF SERVICE: 01/12/2020 This 49-year-old woman who was admitted with significant left swelling and left ulceration, being closely monitored at this time. The culture showed presumptive MRSA. The patient is on IV vancomycin. Dr. Stone saw the patient and performed a bedside debridement and excision of the devitalized tissue for deep culture. Patient being closely monitored. No chest pain. No palpitations. No fever. Past medical history reviewed. REVIEW OF SYSTEMS: CARDIOVASCULAR SYSTEM: No angina or palpitations. RESPIRATORY SYSTEM: As mentioned earlier. GI: No nausea. No vomiting. no dysuria. NERVOUS SYSTEM: No numbness or weakness. CURRENT MEDICATIONS: Reviewed and include: Thayne 5 mg, Xanax, Dulcolax, cefazolin, Santyl, heparin, Toradol, morphine sulfate, Narcan, Naprosyn, Protonix, Restoril, Ultram and vancomycin. PHYSICAL EXAM: Patient is alert, oriented times three. Pulse is 69. Blood pressure 119/72, respiration 14, temperature 97.8, pulse ox 98% on room air. HEENT: Conjunctivae normal. NECK is no JVD. CARDIOVASCULAR: S1, S2 muffled. RESPIRATIONS: Breath sounds diminished in the bases. No rhonchi. No crackles. ABDOMEN: Soft, nontender. LEGS: Examination of the left leg significant ulceration in the lower 3rd present. NERVOUS SYSTEM: No focal deficits. LABORATORY DATA: CBC within normal limits. Sodium 137, potassium 4.8. AST is 50 and ALT is 59. ASSESSMENT: 1. Acute left goems ulcer with surrounding cellulitis with failure of outpatient treatment, severe with MRSA. 2. Increased AST, ALT of undetermined etiology, mild hepatitis. 3. History of degenerative joint disease. 4. History of anxiety. 5. History of nicotine dependence. 6. FULL CODE. RECOMMENDATIONS AND DISCUSSION: I recommend to continue current medications. Continue symptomatic treatment. Bedside debridement by Dr. Stone. Continue the IV vancomycin. Otherwise, I would also recommend a bone scan to rule out the possibility of osteomyelitis. Otherwise, prognosis guarded because of multiple complex medical issues and further recommendations to follow. MMODL / IJN: [id number] /
[2020-01-12] MEDS ORDERED: ONDANSETRON 4 MG/2 ML VIAL IVP PRN (16:47)
[2020-01-13] MEDS: SODIUM CHLORIDE 0.9% 1,000 ML IV SCH ×3 (00:26→14:13)
[2020-01-13] MEDS: VANCOMYCIN 1,500 MG in SODIUM CHLORIDE 0.9% 250 ML IVPB SCH ×3 (03:55→19:56)
[2020-01-13] MEDS: HYDROcodone/APAP 5-325MG 1 EACH TAB PO PRN ×3 (04:11→17:22)
[2020-01-13 07:32] LABS: Basophils # (A) 0.1 k/uL (0-0.2); Basophils % (A) 1 %; Eosinophils # (A) 0.1 k/uL (0-0.7); Eosinophils % (A) 3 %; HCT 34.2 % (34.0-46.0); HGB 11.1 gm/dL (11.4-16.0); Lymphocytes # (A) 1.8 k/uL (1.0-4.8); Lymphocytes % (A) 33 %; MCH 29.7 pg (25.0-35.0); MCHC 32.6 g/dL (31.0-37.0); MCV 91.2 fL (80.0-100.0); Mean Platelet Volume 7.9; Monocytes # (A) 0.3 k/uL (0-1.0); Monocytes % (A) 6 %; Neutrophils % (A) 55 %; Platelet Count 243 k/uL (150-450); RBC 3.75 m/uL (3.80-5.40); RDW 12.5 % (11.5-15.5); WBC 5.4 k/uL (3.8-10.6)
[2020-01-13] MEDS: COLLAGENASE 250 UNIT/GM OINTMENT 30 GM TUBE TOPICAL SCH (07:41)
[2020-01-13] MEDS: PANTOPRAZOLE 40 MG TABLET PO SCH ×2 (07:41→15:56)
[2020-01-13] MEDS: HEPARIN SODIUM,PORCINE 5,000 UNIT/ML 1 ML VIAL SQ SCH ×2 (07:41→19:58)
[2020-01-13] MEDS: MULTIVITAMINS, THERA 1 EACH TAB PO SCH (07:41)
[2020-01-13 07:50] LABS: African American GFR (CKD) >90 (>60 ml/min/1.73 sqM); Anion Gap 3 mmol/L; Blood Urea Nitrogen 11 mg/dL (7-17); Calcium 8.4 mg/dL (8.4-10.2); Carbon Dioxide 28 mmol/L (22-30); Chloride 106 mmol/L (98-107); Glucose 84 mg/dL (74-99); Non-African American GFR(CKD) >90 (>60 ml/min/1.73 sqM); Sodium 137 mmol/L (137-145)
[2020-01-13 14:47] LABS: ALT 153 U/L (4-34); AST 113 U/L (14-36); Albumin 3.1 g/dL (3.5-5.0); Alkaline Phosphatase 175 U/L (38-126); Total Bilirubin 0.3 mg/dL (0.2-1.3); Total Protein 5.8 g/dL (6.3-8.2)
--- NOTE | 2020-01-13 14:53 | PN ---
PROGRESS NOTE DATE OF SERVICE: 01/13/2020 This is a 49-year-old woman who was admitted with significant left gomes swelling and excisional debridement by Dr. Stone. The patient is on broad-spectrum IV antibiotics. Presumptive Staph was grown from the culture. No chest pain. No palpitations. No fever. PHYSICAL EXAMINATION: GENERAL: Patient is alert and oriented times three. VITAL SIGNS: Pulse 75, blood pressure 119/77, respirations 14, temperature 97.9, pulse ox 100% on room air HEENT: Conjunctivae normal. NECK: No jugular venous distention. RESPIRATORY: Breath sounds diminished at the bases. No rhonchi, no crackles. HEART: S1 and S2, muffled. ABDOMEN: Soft, no tenderness. EXTREMITIES: Left gomes ulcer present. NERVOUS: No focal deficits. LABS: WBC 5.2, hemoglobin 11.1. ASSESSMENT: 1. Acute left gomes ulcer with surrounding cellulitis with failure of outpatient treatment, possibly Methicillin resistant Staphylococcus aureus, status post excisional debridement. 2. Increased AST, ALT of undetermined etiology, possibly mild hepatitis. 3. History of degenerative joint disease. 4. History of anxiety. 5. History of nicotine dependence. 6. FULL CODE. RECOMMENDATIONS AND DISCUSSION: Recommend to continue with current medications, continue with monitoring and symptomatic treatment. Otherwise continue with the vancomycin. Cefazolin may be stopped at this time. We will continue to monitor. Closely follow with Wound Care. Also repeat CMP tomorrow and if LFTs are persistently elevated, I would order the acute hepatitis panel. Further recommendations to follow. MMODL / IJN: [id number] /
[2020-01-14] MEDS: SODIUM CHLORIDE 0.9% 1,000 ML IV SCH ×4 (00:16→20:33)
[2020-01-14] MEDS: VANCOMYCIN 1,500 MG in SODIUM CHLORIDE 0.9% 250 ML IVPB SCH ×3 (03:47→20:33)
[2020-01-14] MEDS: PANTOPRAZOLE 40 MG TABLET PO SCH ×2 (07:06→16:42)
[2020-01-14] MEDS: HEPARIN SODIUM,PORCINE 5,000 UNIT/ML 1 ML VIAL SQ SCH ×2 (07:06→20:33)
[2020-01-14] MEDS: MULTIVITAMINS, THERA 1 EACH TAB PO SCH (07:06)
[2020-01-14] MEDS: HYDROcodone/APAP 5-325MG 1 EACH TAB PO PRN ×2 (07:06→20:32)
[2020-01-14] MEDS: COLLAGENASE 250 UNIT/GM OINTMENT 30 GM TUBE TOPICAL SCH (10:42)
[2020-01-14] MEDS ORDERED: VANCOMYCIN TROUGH DUE 1 EACH MISC MISCELLANE ONE (11:00)
--- NOTE | 2020-01-14 11:05 | P.PN ---
Subjective This is a pleasant 49 years old female with multiple medical problems admitted for left lower leg infection and cellulitis status post debridement by surgery team. It looks like her cellulitis is improvement. She remains on IV vancomycin for presumptive MRSA in the wound culture Surgery team on the case. Infectious disease team was consulted Patient explained the plan for her with a possible side effects from vancomycin including nephrotoxicity, she agrees with that. Continue with monitoring creatinine Objective - Vital Signs Vital signs: Vital Signs Temp 97.9 F 01/14/20 07:00 Pulse 68 01/14/20 07:00 Resp 18 01/14/20 07:00 BP 147/75 01/14/20 07:00 Pulse Ox 97 01/14/20 07:00 Intake & Output 01/13/20 01/14/20 01/14/20 18:59 06:59 18:59 Intake Total 700 Balance 700 Intake: Intake, IV Titration 700 Amount Sodium Chloride 0.9% 1, 200 000 ml @ 130 mls/hr IV . Q7H42M [facility] Rx#:[id number] Vancomycin 1,500 mg In 500 Sodium Chloride 0.9% 250 ml @ 125 mls/hr IVPB Q8H [facility] Rx#:[id number] Other: Voiding Method Toilet Toilet # Voids 2 2 # Bowel Movements 1 - Exam GENERAL: The patient is alert and oriented x3, not in any acute distress. Well developed, well nourished. HEENT: Pupils are round and equally reacting to light. EOMI. No scleral icterus. No conjunctival pallor. Normocephalic, atraumatic. No pharyngeal erythema. No thyromegaly. CARDIOVASCULAR: S1 and S2 present. No murmurs, rubs, or gallops. PULMONARY: Chest is clear to auscultation, no wheezing or crackles. ABDOMEN: Soft, nontender, nondistended, normoactive bowel sounds. No palpable organomegaly. MUSCULOSKELETAL: No joint swelling or deformity. -EXTREMITIES: No cyanosis, clubbing, or pedal edema. Left leg wound is clean and healing, minimal surrounding cellulitis. The dressing is in place NEUROLOGICAL: Gross neurological examination did not reveal any focal deficits. SKIN: No rashes. no petechiae. - Labs CBC & Chem 7: 01/13/20 07:05 01/13/20 07:05 Labs: Abnormal Lab Results - Last 24 Hours (Table) 01/13/20 Range/Units 07:05 AST 113 H (14-36) U/L ALT 153 H (4-34) U/L Alkaline Phosphatase 175 H (38-126) U/L Total Protein 5.8 L (6.3-8.2) g/dL Albumin 3.1 L (3.5-5.0) g/dL Microbiology - Last 24 Hours (Table) 01/12/20 13:15 Gram Stain - Final Leg - Left Tissue Culture - Final Methicillin resist S. aureus 01/12/20 13:15 Gram Stain - Preliminary Leg - Left Wound Culture - Preliminary Presumptive MRSA 01/11/20 07:25 Gram Stain - Final Ankle - Left Wound Culture - Final Methicillin resist S. aureus 01/10/20 18:29 Blood Culture - Preliminary Blood No Growth after 72 hours Assessment and Plan Plan: Acute left gomes ulcer with surrounding cellulitis, status post excisional debridement was secondary to MRSA. Improving: Continue with antibiotics as per recommendation by ID and vascular surgery team Anxiety, not an active issue Previous smoker DVT prophylaxis: Subcutaneous heparin GI prophylaxis: PPI
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
[2020-01-14 11:52] LABS: Basophils # (A) 0.1 k/uL (0-0.2); Basophils % (A) 2 %; Eosinophils # (A) 0.1 k/uL (0-0.7); Eosinophils % (A) 3 %; HCT 36.4 % (34.0-46.0); HGB 11.9 gm/dL (11.4-16.0); Lymphocytes # (A) 1.6 k/uL (1.0-4.8); Lymphocytes % (A) 30 %; MCH 29.9 pg (25.0-35.0); MCHC 32.7 g/dL (31.0-37.0); MCV 91.5 fL (80.0-100.0); Monocytes # (A) 0.4 k/uL (0-1.0); Monocytes % (A) 7 %; Neutrophils # (A) 3.1 k/uL (1.3-7.7); Neutrophils % (A) 58 %; Platelet Count 275 k/uL (150-450); RBC 3.97 m/uL (3.80-5.40); RDW 12.7 % (11.5-15.5); WBC 5.3 k/uL (3.8-10.6)
[2020-01-14 12:07] LABS: African American GFR (CKD) >90 (>60 ml/min/1.73 sqM); Anion Gap 4 mmol/L; Blood Urea Nitrogen 7 mg/dL (7-17); Carbon Dioxide 30 mmol/L (22-30); Chloride 104 mmol/L (98-107); Glucose 74 mg/dL (74-99); Non-African American GFR(CKD) >90 (>60 ml/min/1.73 sqM); Potassium 3.8 mmol/L (3.5-5.1); Sodium 138 mmol/L (137-145)
--- NOTE | 2020-01-14 12:38 | P.PN ---
Progress Note - Text 49-year-old white female, patient came with the wound on the left lower extremity infected we did the debridement and culture came back as a MRSA patient IV antibiotic we been treating the wound Santyl cream daily wound is granulating and mild drainage noted continue with IV antibiotic and patient goes home we will need a homecare and follow-up in the wound clinic on Tuesday at [facility]
--- NOTE | 2020-01-14 13:52 | NM ---
EXAMINATION TYPE: NM bone 3 phase DATE OF EXAM: 01/14/2020 COMPARISON: Radiograph 01/11/2020 HISTORY: 49-year-old female pain, osteomyelitis left gomes Technique: Triple phase bone scintigraphy was performed following the injection of 21.5 mCi Tc 99m MD P. Immediate images and 3.5 hours post injection images acquired. Imaging centered at the bilateral distal lower extremities. FINDINGS: On flow, minimal asymmetric hyperemia left leg. Pool shows no significant asymmetric uptake. On delayed images, no focal abnormal intense tracer activity is identified on the left. IMPRESSION: Some asymmetric soft tissue uptake along the left leg could represent cellulitis. No scintigraphic ev idence for underlying osteomyelitis.
[2020-01-15] MEDS: VANCOMYCIN 1,500 MG in SODIUM CHLORIDE 0.9% 250 ML IVPB SCH ×2 (04:46→12:02)
[2020-01-15] MEDS: HYDROcodone/APAP 5-325MG 1 EACH TAB PO PRN ×2 (04:46→13:38)
[2020-01-15] MEDS: SODIUM CHLORIDE 0.9% 1,000 ML IV SCH ×2 (04:52→16:23)
[2020-01-15 07:36] VITALS: PULSE 68; RESP 18
[2020-01-15] MEDS: MULTIVITAMINS, THERA 1 EACH TAB PO SCH (08:15)
[2020-01-15] MEDS: PANTOPRAZOLE 40 MG TABLET PO SCH (08:15)
[2020-01-15] MEDS: HEPARIN SODIUM,PORCINE 5,000 UNIT/ML 1 ML VIAL SQ SCH (08:15)
[2020-01-15 09:10] LABS: African American GFR (CKD) 117.1 (60.0-200.0); Anion Gap 5.9 mmol/L (4.00-12.00); Calcium 8.6 mg/dL (8.7-10.3); Carbon Dioxide 28.1 mmol/L (21.6-31.8); Potassium 3.7 mmol/L (3.5-5.5)
[2020-01-15] MEDS: COLLAGENASE 250 UNIT/GM OINTMENT 30 GM TUBE TOPICAL SCH (12:07)
[2020-01-15 15:26] VITALS: BP 139/62; TEMP 97.9
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
[2020-01-16] MEDS ORDERED: VANCOMYCIN TROUGH DUE 1 EACH MISC MISCELLANE ONE (11:00)
== END 2020-01-15 17:10 | disposition home health service (06) | DRG 571 ==
LOC: EC 16:55 → 1SOBS 20:03 → OBSVTOIN 01-11 11:24 → 4SSUR 01-13 16:04
PROVIDERS: ADMIT Hospitalist; ATTEND Hospitalist
PROC: 0JBP0ZZ Excision of Left Lower Leg Subcutaneous Tissue and Fascia, Open Approach (ICD-10-PCS; principal; 2020-01-12)
DX: L03.116 Cellulitis of left lower limb (principal); L97.922 Non-pressure chronic ulcer of unspecified part of left lower leg with fat layer exposed; K75.9 Inflammatory liver disease, unspecified; T63.301A Toxic effect of unspecified spider venom, accidental (unintentional), initial encounter; Z87.891 Personal history of nicotine dependence; F41.9 Anxiety disorder, unspecified; B95.62 Methicillin resistant Staphylococcus aureus infection as the cause of diseases classified elsewhere
CPT/HCPCS: 10060; 36415; 78315; 80048; 80053; 80202; 81025; 83605; 85025; 87040; 87070; 87075; 87077; 87186; 87205; 96365; 96366; 96367; 99285

== ENCOUNTER → 2020-02-26 | Outpatient (CLI) | payer OTHER ==
--- NOTE | 2020-02-26 12:47 | US ---
EXAMINATION TYPE: US abdomen complete DATE OF EXAM: 02/26/2020 COMPARISON: NONE CLINICAL HISTORY: R10.84 ABD PAIN,K62.5 RECTAL BLEEDING,N83.202 LT OVARIAN CYS. EXAM MEASUREMENTS: Liver Length: 11.8 Gallbladder Wall: 0.3m CBD: 0.4m Spleen: 8.1m Right Kidney: 10.5 x 4.1 x 6.3 Left Kidney: 11.2 x 5.4 x 5.9 Pancreas: visualized portions wnl Liver: wnl Gallbladder: No stones seen Evidence for sonographic Campos's sign: No CBD: wnl Spleen: wnl Right Kidney: No hydronephrosis or masses seen Left Kidney: No hydronephrosis or masses seen Upper IVC: wnl Abd Aorta: wnl IMPRESSION: 1. Normal abdomen ultrasound.
--- NOTE | 2020-02-26 12:48 | US ---
EXAMINATION TYPE: US pelvic complete DATE OF EXAM: 02/26/2020 COMPARISON: NONE CLINICAL HISTORY: R10.84 ABD PAIN,K62.5 RECTAL BLEEDING,N83.202 LT OVARIAN CYS. TECHNIQUE: Transabdominal (TA). Date of LMP: 01/26/2020 EXAM MEASUREMENTS: Uterus: 8.3 x 4.0 x 4.9 cm Endometrial Stripe: 0.8 cm Right Ovary: 2.4 x 2.7 x 1.0 cm Left Ovary: 2.9 x 2.0 x 1.4 cm History of 2 C sections. 1. Uterus: Anteverted wnl 2. Endometrium: measures 0.8 cm 3. Right Ovary: wnl 4. Left Ovary: wnl 5. Bilateral Adnexa: wnl 6. Posterior cul-de-sac: no free fluid Nondistended urinary bladder appears unremarkable. IMPRESSION: 1. Normal pelvic ultrasound.
== END | disposition home or self-care (01) ==
LOC: RADUSWWP 07:46
PROVIDERS: ATTEND Family Medicine
DX: N83.202 Unspecified ovarian cyst, left side (principal); R10.84 Generalized abdominal pain
CPT/HCPCS: 76700; 76856

== ENCOUNTER → 2020-04-10 | Outpatient (CLI) | payer OTHER ==
[2020-04-10 10:59] LABS: Basophils # (A) 0.1 k/uL (0-0.2); Basophils % (A) 1 %; Eosinophils # (A) 0.1 k/uL (0-0.7); Eosinophils % (A) 3 %; HGB 13.5 gm/dL (11.4-16.0); Lymphocytes # (A) 1.2 k/uL (1.0-4.8); Lymphocytes % (A) 27 %; MCH 28.6 pg (25.0-35.0); MCV 86.8 fL (80.0-100.0); Mean Platelet Volume 7.8; Monocytes # (A) 0.5 k/uL (0-1.0); Monocytes % (A) 12 %; Neutrophils # (A) 2.4 k/uL (1.3-7.7); Neutrophils % (A) 55 %; Platelet Count 259 k/uL (150-450); RBC 4.72 m/uL (3.80-5.40); RDW 13.1 % (11.5-15.5); WBC 4.4 k/uL (3.8-10.6)
[2020-04-10 14:58] LABS: Erythrocyte Sedimentation Rate 21 mm/hr (0-20)
== END | disposition home or self-care (01) ==
LOC: LABWHC1 09:59
PROVIDERS: ATTEND Nurse Practitioner
DX: K62.5 Hemorrhage of anus and rectum (principal)
CPT/HCPCS: 36415; 85025; 85652; 86140

== ENCOUNTER 2020-04-23 10:02 | Day surgery (SDC) | payer OTHER ==
[2020-04-21 14:32] VITALS: BMI 27.4
[~2020-04-23 10:02] MED LIST changes: -DEXAMETHASONE SOD PHOSPHATE 10 MG/ML 1 ML VIAL IV ONE; -KETOROLAC 30 MG/ML 1 ML VIAL IVP SCH; -METOCLOPRAMIDE 5 MG/ML 2 ML VIAL IVP PRN; -ONDANSETRON 4 MG/2 ML VIAL IVP ONE
[2020-04-23 10:35] VITALS: TEMP 98.4
[2020-04-23] MEDS ORDERED: PROPOFOL 10 MG/ML 20 ML VIAL IV ONE (11:23)
[2020-04-23] MEDS ORDERED: LIDOCAINE 1% INJ 10MG/ML (20 ML MDV) ONE (11:23)
--- NOTE | 2020-04-23 11:37 | P.PCN ---
Date of Procedure: 04/23/20 Procedure(s) Performed: BRIEF HISTORY: Patient is a 50-year-old pleasant white female scheduled for an elective colonoscopy as a part of evaluation of intermittent rectal bleeding for the last 2 years duration. PROCEDURE PERFORMED: Colonoscopy. PREOPERATIVE DIAGNOSIS: Intermittent rectal bleeding.. IV sedation per Anesthesia. PROCEDURE: After informed consent was obtained, the patient, was brought into the endoscopy unit. IV sedation was administered by Anesthesia under continuous monitoring. Digital rectal examination was normal. Initially the Olympus CF-160 flexible video colonoscope was then inserted in the rectum, gradually advanced into the cecum without any difficulty. Careful examination was performed as the scope was gradually being withdrawn. Ileocecal valve and the appendiceal orifice were visualized and appeared normal. Prep was excellent. Mucosa of the cecum, ascending colon, transverse colon, descending colon, sigmoid colon, and rectum appeared normal. Retroflexion was performed in the rectum and all internal hemorrhoids were seen. The patient tolerated the procedure well. IMPRESSION: Normal-appearing colon from rectum to cecum with no evidence of colorectal neoplasia . Small internal hemorrhoids. RECOMMENDATIONS: Findings of this examination were discussed with the patient as well as a family. She was advised to be a high-fiber diet and take fiber supplements a regular basis. She can have a repeat screening colonoscopy in 10 years..
[2020-04-23 11:41] VITALS: BP 90/54; PULSE 67; RESP 16
== END 2020-04-23 12:15 | disposition home or self-care (01) ==
LOC: ORWHC2ENDO 10:02
PROVIDERS: ATTEND Internal Medicine Gastroenterology
DX: K64.8 Other hemorrhoids (principal); K62.5 Hemorrhage of anus and rectum; Z97.2 Presence of dental prosthetic device (complete) (partial)
CPT/HCPCS: 81025; 45378; J2001; J2704

== ENCOUNTER 2022-01-15 05:22 | Emergency (ER) | payer OTHER ==
[2022-01-15] MEDS ORDERED: SODIUM CHLORIDE 0.9% 1,000 ML IV STA (05:27)
[2022-01-15 05:33] VITALS: BP 136/93; PULSE 71; RESP 14; TEMP 97.6
[2022-01-15 05:45] LABS: Basophils % (A) 1 %; Eosinophils # (A) 0.1 k/uL (0-0.7); Eosinophils % (A) 3 %; Lymphocytes # (A) 1.3 k/uL (1.0-4.8); Lymphocytes % (A) 36 %; MCH 26.7 pg (25.0-35.0); MCHC 32.4 g/dL (31.0-37.0); MCV 82.6 fL (80.0-100.0); Mean Platelet Volume 9.4; Monocytes # (A) 0.3 k/uL (0-1.0); Monocytes % (A) 7 %; Neutrophils # (A) 1.9 k/uL (1.3-7.7); Neutrophils % (A) 51 %; Platelet Count 189 k/uL (150-450); RBC 4.48 m/uL (3.80-5.40); RDW 15.9 % (11.5-15.5); WBC 3.7 k/uL (3.8-10.6)
[2022-01-15 05:58] LABS: ALT 27 U/L (4-34); AST 31 U/L (14-36); Acetaminophen <10.0 ug/mL; African American GFR (CKD) >90 (>60 ml/min/1.73 sqM); Albumin 4.2 g/dL (3.5-5.0); Alcohol <10 mg/dL; Alkaline Phosphatase 73 U/L (38-126); Anion Gap 10 mmol/L; Blood Urea Nitrogen 12 mg/dL (7-17); Calcium 8.8 mg/dL (8.4-10.2); Carbon Dioxide 25 mmol/L (22-30); Chloride 103 mmol/L (98-107); Glucose 97 mg/dL (74-99); Non-African American GFR(CKD) >90 (>60 ml/min/1.73 sqM); Phenytoin (Dilantin) <3.0 ug/mL; Potassium 3.7 mmol/L (3.5-5.1); Salicylate <1.0 mg/dL; Sodium 138 mmol/L (137-145); Total Bilirubin 0.4 mg/dL (0.2-1.3); Total Protein 6.7 g/dL (6.3-8.2)
--- NOTE | 2022-01-15 06:04 | ED ---
Seizure HPI - General Chief Complaint: Seizure Stated Complaint: Seizure Time Seen by Provider: 01/15/22 05:27 Source: patient, EMS, RN notes reviewed, old records reviewed Mode of arrival: EMS Limitations: altered mental status - History of Present Illness Initial Comments: This is a 51-year-old female to the emergency department for evaluation patient presents today for evaluation regards to seizure. Patient has no history of seizure. Denies drug or alcohol abuse. Denies head trauma, no prior recent change in medications or any other complaints. As patient is here in the ER she has no complaints. Patient does admit to being confused after event and so do bystander MD Complaint: seizure -: minutes(s) (3) Description of Episode: loss of consciousness, post-event confusion -: minutes(s) Witnessed: yes - by bystander Trauma: No Seizure History: none Place: home Possible Precipitating Event: none Associated Symptoms: denies other symptoms Treatments Prior to Arrival: none - Related Data Home Medications Medication Instructions Recorded Confirmed Calcium Carbonate [Tums] 500 mg PO DIRECTED PRN 04/21/20 04/23/20 Multivit with Calcium,Iron,Min 1 each PO DAILY 04/21/20 04/23/20 [Women's Multivitamin] Allergies Allergy/AdvReac Type Severity Reaction Status Date / Time No Known Allergies Allergy Verified 04/23/20 10:36 Review of Systems ROS Statement: Those systems with pertinent positive or pertinent negative responses have been documented in the HPI. ROS Other: All systems not noted in ROS Statement are negative. Past Medical History Past Medical History: Osteoarthritis (OA) Additional Past Medical History / Comment(s): low iron, states c onstipation/diarrhea and blood in stool. History of Any Multi-Drug Resistant Organisms: MRSA Date of last positivie culture/infection: 01/12/20 MDRO Source:: Left Leg Past Surgical History: Section, Orthopedic Surgery Additional Past Surgical History / Comment(s): x2, left knee meniscus Past Anesthesia/Blood Transfusion Reactions: No Reported Reaction, Motion Sickness Past Psychological History: Anxiety Additional Psychological History / Comment(s): . Smoking Status: Former smoker Past Alcohol Use History: Rare Additional Past Alcohol Use History / Comment(s): quit smoking 21 yrs. ago, smoked for about 10 yrs. Past Drug Use History: None Reported Additional Drug Use History / Comment(s): . - Past Family History Mother Additional Family Medical History / Comment(s): brain aneurysm Father Additional Family Medical History / Comment(s): heart problems unsure of what General Exam General appearance: alert, in no apparent distress Head exam: Present: atraumatic, normocephalic, normal inspection Eye exam: Present: normal appearance, PERRL, EOMI. Absent: scleral icterus, conjunctival injection, periorbital swelling ENT exam: Present: normal exam, mucous membranes moist Neck exam: Present: normal inspection. Absent: tenderness, meningismus, lymphadenopathy Respiratory exam: Present: normal lung sounds bilaterally. Absent: respiratory distress, wheezes, rales, rhonchi, stridor Cardiovascular Exam: Present: regular rate, normal rhythm, normal heart sounds. Absent: systolic murmur, diastolic murmur, rubs, gallop, clicks GI/Abdominal exam: Present: soft, normal bowel sounds. Absent: distended, tenderness, guarding, rebound, rigid Extremities exam: Present: normal inspection, full ROM, normal capillary refill. Absent: tenderness, pedal edema, joint swelling, calf tenderness Back exam: Present: normal inspection Neurological exam: Present: alert, oriented X3, CN II-XII intact Psychiatric exam: Present: normal affect, normal mood Skin exam: Present: warm, dry, intact, normal color. Absent: rash Course Vital Signs 01/15/22 05:28 Temperature 97.6 F Pulse Rate 71 Respiratory 14 Rate Blood Pressure 136/93 O2 Sat by Pulse 100 Oximetry - Reevaluation(s) Reevaluation #1: 01/15/22 medical record is reviewed patients symptoms improved in the ED patient informed of results here in the ED and questions answered Medical Decision Making - Medical Decision Making 51 female with new onset seizure. No acute cause of seizures found, patient can be discharged home - Lab Data Result diagrams: 01/15/22 05:33 01/15/22 05:33 Lab Results 01/15/22 01/15/22 01/15/22 Range/Units 05:33 05:33 07:50 WBC 3.7 L (3.8-10.6) k/uL RBC 4.48 (3.80-5.40) m/uL Hgb 12.0 (11.4-16.0) gm/dL Hct 37.0 (34.0-46.0) % MCV 82.6 (80.0-100.0) fL MCH 26.7 (25.0-35.0) pg MCHC 32.4 (31.0-37.0) g/dL RDW 15.9 H (11.5-15.5) % Plt Count 189 (150-450) k/uL MPV 9.4 Neutrophils % 51 % Lymphocytes % 36 % Monocytes % 7 % Eosinophils % 3 % Basophils % 1 % Neutrophils # 1.9 (1.3-7.7) k/uL Lymphocytes # 1.3 (1.0-4.8) k/uL Monocytes # 0.3 (0-1.0) k/uL Eosinophils # 0.1 (0-0.7) k/uL Basophils # 0.0 (0-0.2) k/uL Sodium 138 (137-145) mmol/L Potassium 3.7 (3.5-5.1) mmol/L Chloride 103 (98-107) mmol/L Carbon Dioxide 25 (22-30) mmol/L Anion Gap 10 mmol/L BUN 12 (7-17) mg/dL Creatinine 0.69 (0.52-1.04) mg/dL Est GFR (CKD-EPI)AfAm >90 (>60 ml/min/1.73 sqM) Est GFR (CKD-EPI)NonAf >90 (>60 ml/min/1.73 sqM) Glucose 97 (74-99) mg/dL Calcium 8.8 (8.4-10.2) mg/dL Magnesium 2.0 (1.6-2.3) mg/dL Total Bilirubin 0.4 (0.2-1.3) mg/dL AST 31 (14-36) U/L ALT 27 (4-34) U/L Alkaline Phosphatase 73 (38-126) U/L Total Protein 6.7 (6.3-8.2) g/dL Albumin 4.2 (3.5-5.0) g/dL Urine Color Light Yellow Urine Appearance Clear (Clear) Urine pH 7.0 (5.0-8.0) Ur Specific [place] 1.030 (1.001-1.035) Urine Protein Negative (Negative) Urine Glucose (UA) Negative (Negative) Urine Ketones Negative (Negative) Urine Blood Negative (Negative) Urine Nitrite Negative (Negative) Urine Bilirubin Negative (Negative) Urine Urobilinogen <2.0 (<2.0) mg/dL Ur Leukocyte Esterase Negative (Negative) Salicylates <1.0 mg/dL Urine Opiates Screen Not Detected (NotDetected) Ur Oxycodone Screen Not Detected (NotDetected) Urine Methadone Screen Not Detected (NotDetected) Ur Propoxyphene Screen Not Detected (NotDetected) Acetaminophen <10.0 ug/mL Ur Barbiturates Screen Not Detected (NotDetected) Phenytoin <3.0 ug/mL U Tricyclic Antidepress Not Detected (NotDetected) Ur Phencyclidine Scrn Not Detected (NotDetected) Ur Amphetamines Screen Not Detected (NotDetected) U Methamphetamines Scrn Not Detected (NotDetected) U Benzodiazepines Scrn Not Detected (NotDetected) Urine Cocaine Screen Not Detected (NotDetected) U Marijuana (THC) Screen Detected H (NotDetected) Serum Alcohol <10 mg/dL - Radiology Data Radiology results: report reviewed (CT brain CTA had negative for acute disease), image reviewed Disposition Clinical Impression: New onset seizure Disposition: HOME SELF-CARE Condition: Good Instructions (If sedation given, give patient instructions): Seizure/Epilepsy Discharge Instructions & Follow-Up, New-Onset Seizure in Adults (ED) Is patient prescribed a controlled substance at d/c from ED?: No Referrals: Jigna Mejia MD [Primary Care Provider] - 1-2 days Time of Disposition: 07:00
--- NOTE | 2022-01-15 06:43 | CT ---
EXAMINATION TYPE: CT brain wo con DATE OF EXAM: 01/15/2022 COMPARISON: None HISTORY: Seizure CT DLP: 2151.4 mGycm Automated exposure control for dose reduction was used. Images of the brain obtained with no contrast. Ventricles have normal size. There is no mass effect or midline shift. No sign of intracranial hemorr richie. The calvarium is intact. Skull base is intact. There is normal aeration of the mastoid sinuses. Sella turcica is normal. IMPRESSION: Negative unenhanced head CT scan.
[2022-01-15] MEDS ORDERED: PROCHLORPERAZINE INJ 10 MG/2 ML VIAL IVP STA (07:07)
[2022-01-15] MEDS ORDERED: KETOROLAC 15 MG/ML 1 ML VIAL IVP STA (07:07)
[2022-01-15] MEDS ORDERED: diphenhydrAMINE 50 MG/ML 1 ML VIAL IVP STA (07:07)
[2022-01-15 07:53] LABS: Appearance,Urine Clear (Clear); Bilirubin,Urine Negative (Negative); Blood,Urine Negative (Negative); Color,Urine Light Yellow; Glucose,Urine (UA) Negative (Negative); Ketones,Urine Negative (Negative); Leukocyte Esterase,Urine Negative (Negative); Nitrite,Urine Negative (Negative); Protein,Urine Negative (Negative); Urobilinogen,Urine <2.0 mg/dL (<2.0)
--- NOTE | 2022-01-15 07:58 | CT ---
EXAMINATION TYPE: CT angio COW [place] DATE OF EXAM: 01/15/2022 COMPARISON: none HISTORY: Seizure CT DLP: 803.8 mGycm CONTRAST: CTA [place] with 3-D reconstruction is performed and with IV Contrast, patient injected with 100 mL of Isovue 370. Contrast CTA of the [place] was performed 3-D reconstruction imaging obtained at a separate workstation. Vertebrobasilar system as well as intracranial portions of the internal carotid arterie s and their major tributaries are patent. I do not see evidence for sizable aneurysm or vascular mal formation. Please note MRI provides greater sensitivity and specificity. Visualized brain appears g rossly unremarkable. IMPRESSION: No evidence for sizable aneurysm or vascular malformation.
[2022-01-15 08:04] LABS: Amphetamine Screen,Urine Not Detected (NotDetected); Barbiturate Screen,Urine Not Detected (NotDetected); Benzodiazepines Screen,Urine Not Detected (NotDetected); Cocaine Screen,Urine Not Detected (NotDetected); Methadone Screen, Urine Not Detected (NotDetected); Opiate Screen,Urine Not Detected (NotDetected); Oxycodone Screen, Urine Not Detected (NotDetected); Phencyclidine Screen,Urine Not Detected (NotDetected); Tricyclic Antidepressant,Urine Not Detected (NotDetected); Urn Cannabinoid Scrn Detected (NotDetected)
== END 2022-01-15 08:50 | disposition home or self-care (01) ==
LOC: EC 05:22
DX: G40.009 Localization-related (focal) (partial) idiopathic epilepsy and epileptic syndromes with seizures of localized onset, not intractable, without status epilepticus (principal); M19.90 Unspecified osteoarthritis, unspecified site; F41.9 Anxiety disorder, unspecified; Z87.891 Personal history of nicotine dependence
CPT/HCPCS: 99285 ×2; 96374 ×2; 96375 ×3; 36415; 93005; 80053; 80185; 83735; 85025; 81003; 80306; 80143; 80179; 70496; 70450; G0480; J1200; J0780; J1885; Q9967; 80320

== ENCOUNTER 2023-12-30 09:13 | Emergency (ER) | payer OTHER ==
[2023-12-30 09:27] VITALS: TEMP 98.7
[2023-12-30 09:51] LABS: Basophils % (A) 0 %; Eosinophils # (A) 0.1 k/uL (0-0.7); Eosinophils % (A) 2 %; HCT 37.5 % (34.0-46.0); HGB 12.2 gm/dL (11.4-16.0); Lymphocytes # (A) 1.4 k/uL (1.0-4.8); Lymphocytes % (A) 28 %; MCH 29.5 pg (25.0-35.0); MCHC 32.5 g/dL (31.0-37.0); MCV 90.7 fL (80.0-100.0); Mean Platelet Volume 7.6; Monocytes # (A) 0.3 k/uL (0-1.0); Monocytes % (A) 6 %; Neutrophils # (A) 2.9 k/uL (1.3-7.7); Neutrophils % (A) 62 %; Platelet Count 255 k/uL (150-450); RBC 4.13 m/uL (3.80-5.40); WBC 4.8 k/uL (3.8-10.6)
[2023-12-30 09:59] LABS: Appearance,Urine Clear (Clear); Bilirubin,Urine Negative (Negative); Blood,Urine Negative (Negative); Color,Urine Light Yellow; Glucose,Urine (UA) Negative (Negative); Ketones,Urine Negative (Negative); Leukocyte Esterase,Urine Negative (Negative); Nitrite,Urine Negative (Negative); PH, Urine 5.5 (5.0-8.0); Protein,Urine Negative (Negative); Specific Gravity,Urine 1.015 (1.001-1.035); Urobilinogen,Urine <2.0 mg/dL (<2.0)
[2023-12-30 10:03] LABS: ALT 23 U/L (4-34); AST 26 U/L (14-36); African American GFR (CKD) >90 (>60 ml/min/1.73 sqM); Albumin 4.1 g/dL (3.5-5.0); Alkaline Phosphatase 43 U/L (38-126); Anion Gap 10 mmol/L; Blood Urea Nitrogen 10 mg/dL (7-17); Calcium 9.2 mg/dL (8.4-10.2); Carbon Dioxide 25 mmol/L (22-30); Chloride 105 mmol/L (98-107); Glucose 91 mg/dL (74-99); Magnesium 2.1 mg/dL (1.6-2.3); Non-African American GFR(CKD) >90 (>60 ml/min/1.73 sqM); Potassium 3.8 mmol/L (3.5-5.1); Sodium 140 mmol/L (137-145); Total Bilirubin 0.6 mg/dL (0.2-1.3); Total Protein 6.5 g/dL (6.3-8.2)
--- NOTE | 2023-12-30 10:04 | ED ---
Seizure HPI - General Chief Complaint: Seizure Stated Complaint: Seizure Time Seen by Provider: 12/30/23 09:18 Source: patient, EMS Mode of arrival: EMS Limitations: no limitations - History of Present Illness Initial Comments: 53-year-old female with past medical history of seizure disorder who presents to the emergency department after she had a seizure. This was witnessed by daughter. Daughter states that she found her mother in her bed unresponsive. She then began having full tonic-clonic seizure-like activity. Her mattresses on the floor and therefore the patient did not sustain any injuries. Seizure lasted a few minutes before it spontaneously stopped. When EMS arrived the patient was confused and combative. Daughter reports that this is the patient's fourth seizure within the past 2 years. She does not take anything for her seizures. Patient denies any headache or visual changes. No fevers. No chest pain or difficulty breathing. No other alleviating, precipitating modifying factors - Related Data Home Medications Medication Instructions Recorded Confirmed Calcium Carbonate [Tums] 500 mg PO DIRECTED PRN 04/21/20 04/23/20 Multivit with Calcium,Iron,Min 1 each PO DAILY 04/21/20 04/23/20 [Women's Multivitamin] Previous Rx's Medication Instructions Recorded levETIRAcetam [Keppra] 500 mg PO Q12HR #60 tab 12/30/23 Allergies Allergy/AdvReac Type Severity Reaction Status Date / Time No Known Allergies Allergy Verified 12/30/23 09:24 Review of Systems ROS Statement: Those systems with pertinent positive or pertinent negative responses have been documented in the HPI. ROS Other: All systems not noted in ROS Statement are negative. Past Medical History Past Medical History: Osteoarthritis (OA) Additional Past Medical History / Comment(s): low iron, states constipation/diarrhea and blood in stool. History of Any Multi-Drug Resistant Organisms: MRSA Date of last positivie culture/infection: 01/12/20 MDRO Source:: Left Leg Past Surgical History: Section, Orthopedic Surgery Additional Past Surgical History / Comment(s): x2, left knee meniscus Past Anesthesia/Blood Transfusion Reactions: No Reported Reaction, Motion Sickness Past Psychological History: Anxiety Smoking Status: Former smoker Past Alcohol Use History: Rare Past Drug Use History: None Reported - Past Family History Mother Additional Family Medical History / Comment(s): brain aneurysm Father Additional Family Medical History / Comment(s): heart problems unsure of what General Exam Limitations: no limitations General appearance: alert, in no apparent distress Head exam: Present: atraumatic, normocephalic, normal inspection Eye exam: Present: normal appearance, PERRL, EOMI. Absent: scleral icterus, conjunctival injection, periorbital swelling ENT exam: Present: other (Small abrasion to the left side of the patient's tongue) Neck exam: Present: normal inspection. Absent: tenderness, meningismus, lymphadenopathy Respiratory exam: Present: normal lung sounds bilaterally. Absent: respiratory distress, wheezes, rales, rhonchi, stridor Cardiovascular Exam: Present: regular rate, normal rhythm, normal heart sounds. Absent: systolic murmur, diastolic murmur, rubs, gallop, clicks GI/Abdominal exam: Present: soft, normal bowel sounds. Absent: distended, tenderness, guarding, rebound, rigid Extremities exam: Present: normal inspection, full ROM, normal capillary refill. Absent: tenderness, pedal edema, joint swelling, calf tenderness Back exam: Present: normal inspection Neurological exam: Present: alert, oriented X3, CN II-XII intact Psychiatric exam: Present: normal affect, normal mood Skin exam: Present: warm, dry, intact, normal color. Absent: rash Course Vital Signs 12/30/23 12/30/23 09:21 11:05 Temperature 98.7 F Pulse Rate 91 76 Respiratory 18 17 Rate Blood Pressure 108/71 112/75 O2 Sat by Pulse 97 98 Oximetry Medical Decision Making - Medical Decision Making Was pt. sent in by a medical professional or institution (, PA, CUTTER OPERATOR BRICK, urgent care, hospital, or long term...) When possible be specific @ -No Did you speak to anyone other than the patient for history (EMS, parent, family, police, friend...)? What history was obtained from this source @ -Spoke with EMS and the daughter for history Did you review nursing and triage notes (agree or disagree)? Why? @ -I reviewed and agree with nursing and triage notes Were old charts reviewed (outside hosp., previous admission, EMS record, old EK G, old radiological studies, urgent care reports/EKG's, long term records)? Report findings @ -No old charts were reviewed Differential Diagnosis (chest pain, altered mental status, abdominal pain women, abdominal pain men, vaginal bleeding, weakness, fever, dyspnea, syncope, headache, dizziness, GI bleed, back pain, seizure, CVA, palpatations, mental health, musculoskeletal)? @ -Differential Seizure: Recurrent seizure disorder, febrile seizure, alcohol withdrawal, stimulants, meningitis, encephalitis, intercranial hemorrhage, intracranial tumor, stroke, eclampsia, thyrotoxicosis, hypocalcemia, hyponatremia, hypernatremia, hypomagnesemia, psychogenic, this is not meant to be an all-inclusive list. EKG interpreted by me (3pts min.). @ -Yes and demonstrates sinus rhythm with a rate of 67. IA interval 147. QRS 86. QTc of 416. No acute ST segment elevations or depressions X-rays interpreted by me (1pt min.). @ -None done CT interpreted by me (1pt min.). @ -None done U/S interpreted by me (1pt. min.). @ -None done What testing was considered but not performed or refused? (CT, X-rays, U/S, labs)? Why? @ -None What meds were considered but not given or refused? Why? @ -None Did you discuss the management of the patient with other professionals (professionals i.e. , PA, CUTTER OPERATOR BRICK, lab, RT, psych nurse, social work lecturer, clinical trials nurse, teacher, professional security officer, rn field case manager)? Give summary @ -No Was smoking cessation discussed for >3mins.? @ -No Was critical care preformed (if so, how long)? @ -No Were there social determinants of health that impacted care today? How? (Homeles sness, low income, unemployed, alcoholism, drug addiction, transportation, low edu. Level, literacy, decrease access to med. care, [facility], rehab)? @ -No Was there de-escalation of care discussed even if they declined (Discuss DNR or withdrawal of care, Hospice)? DNR status @ -No What co-morbidities impacted this encounter? (DM, HTN, Smoking, COPD, CAD, Cancer, CVA, ARF, Chemo, Hep., AIDS, mental health diagnosis, sleep apnea, morbid obesity)? @ -Seizure disorder Was patient admitted / discharged? Hospital course, mention meds given and route, prescriptions, significant lab abnormalities, going to OR and other pertinent info. @ -Upon arrival patient seen and evaluated in room 11. Thorough history and physical exam was performed. Patient is no longer postictal upon my evaluation. Admits to a history of seizure disorder and does not take any medications. IV was established. Laboratory studies are conducted. Results are discussed with the patient. I did offer initiating an antiepileptic medication and the patient for which the patient was agreeable. She will be started on Keppra 500 mg twice a day. Patient is take the medications as directed and follow-up with her doctor. She needs to be referred to neurology. No driving until seizure- free for 6 months. Patient understood this. Instructed to return for any new or worsening symptoms. Patient agreeable and discharged in stable condition Undiagnosed new problem with uncertain prognosis? @ -No Drug Therapy requiring intensive monitoring for toxicity (Heparin, Nitro, Insulin, Cardizem)? @ -No Were any procedures done? @ -No Diagnosis/symptom? @ -Acute breakthrough seizure, history of seizure disorder Acute, or Chronic, or Acute on Chronic? @ -Acute Uncomplicated (without systemic symptoms) or Complicated (systemic symptoms)? @ -Complicated Side effects of treatment? @ -No Exacerbation, Progression, or Severe Exacerbation? @ -No Poses a threat to life or bodily function? How? (Chest pain, [place], [place], pneumonia, PE, COPD, DKA, ARF, appy, cholecystitis, CVA, Diverticulitis, Homicidal, Suicidal, threat to staff... and all critical care pts) @ -No - Lab Data Result diagrams: 12/30/23 09:30 12/30/23 09:30 Lab Results 12/30/23 12/30/23 12/30/23 Range/Units 09:30 09:30 09:30 WBC 4.8 (3.8-10.6) k/uL RBC 4.13 (3.80-5.40) m/uL Hgb 12.2 (11.4-16.0) gm/dL Hct 37.5 (34.0-46.0) % MCV 90.7 (80.0-100.0) fL MCH 29.5 (25.0-35.0) pg MCHC 32.5 (31.0-37.0) g/dL RDW 13.0 (11.5-15.5) % Plt Count 255 (150-450) k/uL MPV 7.6 Neutrophils % 62 % Lymphocytes % 28 % Monocytes % 6 % Eosinophils % 2 % Basophils % 0 % Neutrophils # 2.9 (1.3-7.7) k/uL Lymphocytes # 1.4 (1.0-4.8) k/uL Monocytes # 0.3 (0-1.0) k/uL Eosinophils # 0.1 (0-0.7) k/uL Basophils # 0.0 (0-0.2) k/uL Sodium 140 (137-145) mmol/L Potassium 3.8 (3.5-5.1) mmol/L Chloride 105 (98-107) mmol/L Carbon Dioxide 25 (22-30) mmol/L Anion Gap 10 mmol/L BUN 10 (7-17) mg/dL Creatinine 0.69 (0.52-1.04) mg/dL Est GFR (CKD-EPI)AfAm >90 (>60 ml/min/1.73 sqM) Est GFR (CKD-EPI)NonAf >90 (>60 ml/min/1.73 sqM) Glucose 91 (74-99) mg/dL Calcium 9.2 (8.4-10.2) mg/dL Magnesium 2.1 (1.6-2.3) mg/dL Total Bilirubin 0.6 (0.2-1.3) mg/dL AST 26 (14-36) U/L ALT 23 (4-34) U/L Alkaline Phosphatase 43 (38-126) U/L Total Protein 6.5 (6.3-8.2) g/dL Albumin 4.1 (3.5-5.0) g/dL Urine Color Light Yellow Urine Appearance Clear (Clear) Urine pH 5.5 (5.0-8.0) Ur Specific [place] 1.015 (1.001-1.035) Urine Protein Negative (Negative) Urine Glucose (UA) Negative (Negative) Urine Ketones Negative (Negative) Urine Blood Negative (Negative) Urine Nitrite Negative (Negative) Urine Bilirubin Negative (Negative) Urine Urobilinogen <2.0 (<2.0) mg/dL Ur Leukocyte Esterase Negative (Negative) Urine Opiates Screen Not Detected (NotDetected) Ur Oxycodone Screen Not Detected (NotDetected) Urine Methadone Screen Not Detected (NotDetected) Ur Barbiturates Screen Not Detected (NotDetected) U Tricyclic Antidepress Not Detected (NotDetected) Ur Phencyclidine Scrn Not Detected (NotDetected) Ur Amphetamines Screen Not Detected (NotDetected) U Methamphetamines Scrn Not Detected (NotDetected) U Benzodiazepines Scrn Not Detected (NotDetected) Urine Cocaine Screen Not Detected (NotDetected) U Marijuana (THC) Screen Detected H (NotDetected) Disposition Clinical Impression: Breakthrough seizure Disposition: HOME SELF-CARE Condition: Stable Instructions (If sedation given, give patient instructions): Seizure/Epilepsy Discharge Instructions & Follow-Up, Recurrent Seizures in Adults (ED) Additional Instructions: Please try the Keppra for seizure control. You need to follow-up with a neurologist to ensure that you have an EEG and MRI. They may adjust your medications depending on how many seizures you have. Return for any new or worsening symptoms Prescriptions: levETIRAcetam [Keppra] 500 mg PO Q12HR #60 tab Is patient prescribed a controlled substance at d/c from ED?: No Referrals: Jigna Shin MD [Primary Care Provider] - 1-2 days Bernard Lynch MD [REFERRING] - 1-2 days Wilma Lynch MD [REFERRING] - 1-2 days Timothy Andujar DO [STAFF PHYSICIAN] - 1-2 days Morris Mejia MD [Medical Doctor] - 1-2 days Time of Disposition: 10:58
[2023-12-30 10:29] LABS: Amphetamine Screen,Urine Not Detected (NotDetected); Barbiturate Screen,Urine Not Detected (NotDetected); Benzodiazepines Screen,Urine Not Detected (NotDetected); Cocaine Screen,Urine Not Detected (NotDetected); Methadone Screen, Urine Not Detected (NotDetected); Opiate Screen,Urine Not Detected (NotDetected); Oxycodone Screen, Urine Not Detected (NotDetected); Phencyclidine Screen,Urine Not Detected (NotDetected); Tricyclic Antidepressant,Urine Not Detected (NotDetected); Urn Cannabinoid Scrn Detected (NotDetected)
[2023-12-30 11:07] VITALS: BP 112/75; PULSE 76; RESP 17
== END 2023-12-30 11:14 | disposition home or self-care (01) ==
LOC: EC 09:13
CPT/HCPCS: 36415; 80053; 80306; 81003; 83735; 85025; 93005; 99285